=== PATIENT | male | born 1990 | race Caucasian/White ===

== ENCOUNTER 2016-10-24 20:31 | Emergency (ER) | payer OTHER ==
[~2016-10-24] VITALS: Ht 170.2 cm; Wt 78.9 kg
[~2016-10-24 20:31] MED LIST: METO10TA82 PO
[2016-10-24 22:59] VITALS: BP 127/100
== END 2016-10-24 23:02 | disposition home or self-care (01) ==
LOC: ED 22:30
DX: S09.90XA Unspecified injury of head, initial encounter (principal); M25.571 Pain in right ankle and joints of right foot; Y04.8XXA Assault by other bodily force, initial encounter; Y93.89 Activity, other specified; Y99.8 Other external cause status; Y92.009 Unspecified place in unspecified non-institutional (private) residence as the place of occurrence of the external cause
CPT/HCPCS: 70450; 99284